=== PATIENT | male | born 1995 | race American Indian/Alaskan Native ===

== ENCOUNTER 2019-03-04 12:00 | Emergency (ER) | payer MEDICAID, OTHER ==
--- NOTE | 2019-03-04 12:22 | Emergency Department Report ---
ED Psych HPI - General Stated Complaint: 1013 Time Seen by Provider: 03/04/19 12:16 - History of Present Illness Initial Comments: Patient is 23 years old male with history of depression. Patient brought to the emergency room by police from [facility] for evaluation of depression and suicidal ideation. Patient stated that he lost his cousin 3 months ago and since then he has been feeling depressed and he is thinking about having himself. Patient does not have a plan. Patient denied any homicidal ideation. Patient also denied any visual or auditory hallucination. MD Complaint: suicidal ideation, feels depressed - Related Data Home Medications Medication Instructions Recorded Confirmed Last Taken OXcarbazepine [Trileptal] 150 mg PO BID 09/17/16 09/17/16 09/15/16 09:00 150 mg Allergies Allergy/AdvReac Type Severity Reaction Status Date / Time No Known Allergies Allergy Verified 09/17/16 20:56 ED Review of Systems ROS: Stated complaint: 1013 Other details as noted in HPI Comment: All other systems reviewed and negative Constitutional: denies: chills, fever Respiratory: denies: cough, shortness of breath, SOB with exertion, SOB at rest, wheezing Cardiovascular: denies: chest pain, palpitations, dyspnea on exertion Gastrointestinal: denies: abdominal pain, nausea, vomiting, diarrhea, constipation, hematemesis, hematochezia Musculoskeletal: denies: back pain Neurological: denies: headache, weakness, numbness, paresthesias, confusion, abnormal gait Psychiatric: depression, suicidal thoughts. denies: anxiety, auditory hallucinations, visual hallucinations, homicidal thoughts ED Past Medical Hx - Past Medical History Hx Asthma: Yes - Social History Smoking Status: Current Every Day Smoker Substance Use Type: Cocaine, Marijuana - Medications Home Medications: Home Medications Medication Instructions Recorded Confirmed Last Taken Type OXcarbazepine [Trileptal] 150 mg PO BID 09/17/16 09/17/16 09/15/16 09:00 History 150 mg ED Physical Exam - General General appearance: alert, in no apparent distress - Head Head exam: Present: atraumatic, normocephalic, normal inspection - Eye Eye exam: Present: normal appearance, PERRL - ENT ENT exam: Present: normal exam, normal orophraynx, mucous membranes moist - Neck Neck exam: Present: normal inspection, full ROM. Absent: tenderness, meningismus, lymphadenopathy, thyromegaly - Respiratory Respiratory exam: Present: normal lung sounds bilaterally - Cardiovascular Cardiovascular Exam: Present: regular rate, normal rhythm, normal heart sounds - GI/Abdominal GI/Abdominal exam: Present: soft, normal bowel sounds. Absent: distended, tenderness, guarding, rebound, rigid, organomegaly, mass, bruit, pulsatile mass, hernia - Extremities Exam Extremities exam: Present: normal inspection, full ROM, normal capillary refill. Absent: pedal edema, calf tenderness - Back Exam Back exam: Present: normal inspection, full ROM. Absent: CVA tenderness (R), CVA tenderness (L), muscle spasm, paraspinal tenderness, vertebral tenderness - Neurological Exam Neurological exam: Present: alert, oriented X3, CN II-XII intact, normal gait, reflexes normal - Psychiatric Psychiatric exam: Present: depressed, suicidal ideation. Absent: normal mood, agitated, anxious, flat affect, manic, homicidal ideation - Skin Skin exam: Present: warm, normal color Critical care attestation.: If time is entered above; I have spent that time in minutes in the direct care of this critically ill patient, excluding procedure time. ED Disposition Clinical Impression: Bipolar 1 disorder, Depression, Suicidal ideation Disposition: [id number] PSY HOSP/PSY UNIT Is pt being admited?: No Condition: Stable
[2019-03-04 12:50] LABS: Bacteria,Urine 1+ /HPF (Negative); Bilirubin,Urine NEG (Negative); Blood,Urine NEG (Negative); Color,Urine Yellow (Yellow); Mucus,Urine 1+ /HPF; Protein,Urine <15 mg/dL mg/dL (Negative)
[2019-03-04 12:54] LABS: Basophils % (Auto) 0.7 % (0.0-1.8); Eosinophils # (Auto) 0.3 K/mm3 (0.0-0.4); Hematocrit 41.8 % (35.5-45.6); Hemoglobin 14.4 gm/dl (11.8-15.2); Lymphocytes # (Auto) 1.6 K/mm3 (1.2-5.4); Lymphocytes % (Auto) 38.8 % (13.4-35.0); Mean Corpuscular HGB Conc 35 % (32-34); Mean Corpuscular Volume 86 fl (84-94); Monocytes # (Auto) 0.4 K/mm3 (0.0-0.8); Monocytes % (Auto) 10.1 % (0.0-7.3); Platelet Count 227 K/mm3 (140-440); Red Blood Count 4.88 M/mm3 (3.65-5.03); Red Cell Distribution Width 14.4 % (13.2-15.2)
[2019-03-04 12:55] LABS: Amphetamine Screen,Urine PRESUMPTIVE NEGATIVE; Benzodiazepines Screen,Urine PRESUMPTIVE NEGATIVE; Cocaine Screen,Urine PRESUMPTIVE NEGATIVE; Methadone Screen,Urine PRESUMPTIVE NEGATIVE; Opiate Screen,Urine PRESUMPTIVE NEGATIVE
[2019-03-04 13:10] LABS: Cannabinoid Screen,Urine PRESUMPTIVE POSITIVE
[2019-03-04 13:18] LABS: BUN/Creatinine Ratio 13; Blood Urea Nitrogen 12 mg/dL (9-20); Calcium 9.2 mg/dL (8.4-10.2); Hemolysis Index 24
[2019-03-04 13:20] LABS: Alanine Aminotransferase 14 units/L (7-56); Albumin 4.1 g/dL (3.9-5)
[2019-03-04 13:21] LABS: Bilirubin,Direct < 0.2 mg/dL (0-0.2)
--- NOTE | 2019-03-05 13:45 | Consultation ---
History of Present Illness - Reason for Consult Consult date: 03/05/19 Reason for consult: Mental Health Evaluation Requesting physician: MIKE ROMERO - Chief Complaint Chief complaint: "I don't want to kill myself now" - History of Present Psychiatric Illness 23 years old AA male who presented to the ER for SI's and depression. Today the patient was calm and cooperative during the assessment. He stated that he struggle with the of his cousin (October 2018) and life stressors. He stated he felt suicidal yesterday while at [facility] for outpatient psy services. He stated that his life isn't stable at this time. He stated that he is unemployed, not in a relationship, residing with his mother, and do not have a vehicle. He stated that he feel "a little better" after thinking about what he said yesterday. He would not confirm or deny a previous suicide attempt when asked. He denies SI/HI's and AVH's. He denies a poor appetite and erratic sleep. He denies alcohol consumption (etoh). Medications and Allergies Allergies Allergy/AdvReac Type Severity Reaction Status Date / Time No Known Allergies Allergy Verified 09/17/16 20:56 Home Medications Medication Instructions Recorded Confirmed Last Taken Type OXcarbazepine [Trileptal] 150 mg PO BID 09/17/16 09/17/16 09/15/16 09:00 History 150 mg Past psychiatric history - Past Medical History Past Medical History: No medical history Past Surgical History: No surgical history - past Psychiatric treatment and history psychiatric treatment history: Hx of substance abuse. Denies a fam psy hx. - Social History Social history: lives with family Mental Status Exam - Vital signs Last Vital Signs Temp 98 F 03/05/19 08:00 Pulse 87 03/05/19 08:00 Resp 18 03/05/19 08:00 BP 109/68 03/05/19 08:00 Pulse Ox 98 03/05/19 01:00 - Exam Narrative exam: MSE: Appearance: calm, cooperative Behavior: regular eye contact Speech: regular rate and tone Mood: "okay" Affect: congruent to mood Thought Process: circumstantial Thought Content: denies SI/HI's and AVH's Motor Activity: ambulatory Cognition: A/O x3 Insight: variable to fair Judgment: variable Results Result Diagrams: 03/04/19 12:43 03/04/19 12:43 All other labs normal. Assessment and Plan Assessment and plan: Impression; MDD, Single Episode. Cannabis Use DO. Complicated Grieving. Today the patient was calm and cooperative during the assessment. DDx: Substance Induced Mood DO Recommendation/Plan: Reevaluate the patient's 1013 in 24 hours and gather collateral information. Risk/Benefits of SSRI's discussed with the patient, he prefer talk therapy at this time. Dispo: If the patient's 1013 is rescinded in 24 hours, he can follow up with [facility] for outpatient psy services. Staffed with Dr Van Gandara.
[2019-03-06 07:55] VITALS: BP 117/79
--- NOTE | 2019-03-06 08:48 | Progress Note ---
Subjective - Reason for Consult Consult date: 03/06/19 Reason for consult: Psychiatry Follow-up - Chief Complaint Chief complaint: "I have goals" 23 years old AA male who presented to the ER for SI's and depression. Today the patient was calm and cooperative during the assessment. The patient is adamant that he has goals for his future. He stated that his priority is to fine employment. Per collateral information from his mother Ramiro Chau at [phone], she stated that her son have had some "struggles," but will be his support system. She stated that he reside with her currently and stated that he can return home once discharged. The patient denies SI/HI's and AVH's. The patient is familiar with [facility] for outpatient psy services. Mental Status Exam - Vital signs Last Vital Signs Temp 98.3 F 03/06/19 07:00 Pulse 63 03/06/19 07:00 Resp 18 03/06/19 07:00 BP 117/79 03/06/19 07:00 Pulse Ox 99 03/06/19 07:00 - Exam Narrative exam: MSE: Appearance: calm, cooperative Behavior: regular eye contact Speech: regular rate and tone Mood: "okay" Affect: congruent to mood Thought Process: logical Thought Content: denies SI/HI's and AVH's Motor Activity: ambulatory Cognition: A/O x3 Insight: appropriate Judgment: appropriate Assessment and Plan Impression; MDD, Single Episode. Cannabis Use DO. Complicated Grieving. Today the patient was calm and cooperative during the assessment. The patient is no threat to self. DDx: Substance Induced Mood DO Recommendation/Plan: Rescind 1013. Discussed the importance to abstain from recreational drug use with the patient, he verbalized understanding.. Also disc ussed generalized coping skills with the patient, he verbalized understanding. Dispo: The patient can follow up with [facility] for outpatient psy services. Staffed with Dr Van Gandara.
== END 2019-03-06 11:43 | disposition home or self-care (01) ==
LOC: EEVIPCON 12:00 → ED 12:00
DX: F31.9 Bipolar disorder, unspecified (principal); J45.909 Unspecified asthma, uncomplicated; F17.200 Nicotine dependence, unspecified, uncomplicated; F12.10 Cannabis abuse, uncomplicated; F14.10 Cocaine abuse, uncomplicated
CPT/HCPCS: 36415; 80048; 80076; 80307; 80320; 81001; 85025; G0480